=== PATIENT | male | born 1985 | race Caucasian/White ===

== ENCOUNTER 2019-08-11 07:08 | Emergency (ER) | payer SELFPAY ==
[2019-08-11 07:10] VITALS: PULSE 103; RESP 28; O2SAT 100; BMI 21.2
[2019-08-11 07:21] VITALS: BP 129/92; PULSE 89; RESP 26; TEMP 37; O2SAT 100
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
[2019-08-11 07:38] LABS: Basophils # 0.1 10^3/uL (0.0-0.1); Basophils % 0.3 %; Eosinophils # 1.3 10^3/uL (0.0-0.8); Eosinophils % 8.4 %; Hematocrit 40.1 % (42.0-52.0); Hemoglobin 13.3 g/dL (11.7-16.6); Lymphocytes # 1.9 10^3/uL (0.8-4.8); Lymphocytes % 12.1 %; Mean Corpuscular HGB Conc 33.2 g/dL (30.0-36.0); Mean Corpuscular Hemoglobin 28.5 pg (28.0-34.0); Mean Corpuscular Volume 86.1 fL (80-94); Mean Platelet Volume 9.5 fL (7.4-10.4); Monocytes # 0.9 10^3/uL (0.2-0.9); Monocytes % 5.9 %; Neutrophils # 11.1 10^3/uL (1.8-7.7); Neutrophils % 72.4 %; Nucleated Red Blood Cells % 0 %; Platelet Count 269 10^3/cmm (130-400); Red Blood Count 4.66 10^6/uL (4.1-5.3); Red Cell Distribution Width 12.7 % (12.1-15.1); White Blood Count 15.3 10^3/uL (4.0-10.0)
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
--- NOTE | 2019-08-11 07:43 | PC.NURSE ---
X-ray at bedside
--- NOTE | 2019-08-11 07:43 | PC.NURSE ---
Patient ID and allergy band applied.
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
--- NOTE | 2019-08-11 07:49 | PC.NURSE ---
Patient to CT via stretcher
[2019-08-11 08:00] LABS: Alanine Aminotransferase 31 U/L (0-41); Albumin Level 4.1 g/dL (3.5-5.2); Alkaline Phosphatase 111 IU/L (40-130); Aspartate Amino Transferase 46 U/L (0-40); Blood Urea Nitrogen 14 mg/dL (6-20); Calcium 9.6 mg/dL (8.5-10.5); Carbon Dioxide 24 mmol/L (22-29); Chloride 98 mmol/L (98-107); Glomerular Filtration Rate 58.7 mL/min (90-130); Glucose 146 mg/dL (74-109); Sodium 135 mmol/L (136-145); Total Bilirubin 0.5 mg/dL (0.15-1.2); Total Protein 7.1 g/dL (6.6-8.7)
[2019-08-11] MEDS: iohexol 300 mg/mL 100 mL Btl IV (08:09)
[2019-08-11 08:10] LABS: Alcohol Level < 10 mg/dL (0-10)
[2019-08-11] MEDS: sodium chloride 0.9% 500 ML 999 ML IV (08:19)
[2019-08-11] MEDS: morphine 4 mg/mL SDV 1 mL IVP (08:46)
[2019-08-11] MEDS: ondansetron 2 mg/ML SDV 2 mL 4 MG IVP (08:46)
--- NOTE | 2019-08-11 09:11 | PC.NURSE ---
Report called to [facility]. Waiting for transport to collect patient.
[2019-08-11 09:57] VITALS: BP 159/99; PULSE 85; RESP 16; O2SAT 99
[2019-08-11 10:24] VITALS: BP 172/97; PULSE 85; RESP 16; O2SAT 99
== END 2019-08-11 10:27 | disposition other institution (70) ==
PROVIDERS: Emergency Provider Family Medicine
DX: S12.590A Other displaced fracture of sixth cervical vertebra, initial encounter for closed fracture (principal); S12.690A Other displaced fracture of seventh cervical vertebra, initial encounter for closed fracture; F17.210 Nicotine dependence, cigarettes, uncomplicated; V29.9XXA Motorcycle rider (driver) (passenger) injured in unspecified traffic accident, initial encounter
CPT/HCPCS: 70450; 71045; 71260; 72040; 72125; 73030; 74177; 80053; 80307; 85025; 96374; 99281; J2270; J2405; J7040; Q9967

== ENCOUNTER 2019-08-26 09:06 | Outpatient (RCR) | payer SELFPAY | END 2019-09-13 23:59 | disposition home or self-care (01) | LOC: SPO 09:06 | PROVIDERS: PCP Surgery; Referring Provider Surgery; Visit Provider Surgery | DX: S12.501D Unspecified nondisplaced fracture of sixth cervical vertebra, subsequent encounter for fracture with routine healing (principal); V29.9XXD Motorcycle rider (driver) (passenger) injured in unspecified traffic accident, subsequent encounter; M54.10 Radiculopathy, site unspecified | CPT/HCPCS: 97161; 97165 ==

== ENCOUNTER 2019-09-14 06:00 | Outpatient (RCR) | payer SELFPAY | END 2019-09-24 11:12 | disposition home or self-care (01) | LOC: SPO 06:00 | PROVIDERS: PCP Surgery; Referring Provider Surgery; Visit Provider Surgery | DX: Z01.89 Encounter for other specified special examinations (principal) ==